=== PATIENT | male | born 1955 | race Caucasian/White ===

== ENCOUNTER 2023-03-12 14:25 | Outpatient (OUT) | payer OTHER, MEDICARE, SELFPAY ==
--- NOTE | 2023-03-12 14:39 | PE_ITS ---
[address] [address] Patient Name: ESE VAIL MRN: [id number] date: 1955 Sex: M Assigned Patient Location: PETCT Current Patient Location: Accession/Order Number: [id number] Exam Date: 03/12/2023 16:11 Report Date: 03/13/2023 09:07 At the request of: MENG ROTH Procedure: PET skull to mid thigh NUCLEAR MEDICINE PET/CT HISTORY: Solitary pulmonary nodule. COMPARISON: None. METHOD: 13.47 mCi of F-18 FDG was administered intravenously. Blood sugar level at the time of the injection: 109. At 52 minutes from injection, PET images were obtained from the skull base through the midthigh levels in the axial plane. Reformatted images were performed in the sagittal and coronal planes. A low-dose, noncontrast CT scan was performed for attenuation correction and anatomical localization. A low dose, noncontrast and nondiagnostic CT scan was performed for attenuation correction and anatomic localization. Mediastinal blood pool SUV max 2.6 using the patient's body weight as the normalization method. FINDINGS: HEAD AND NECK: There are no metabolically active lymph nodes in the neck. There is a left maxillary sinus mucus retention cyst versus polyp. CHEST: There are no metabolically active mediastinal, hilar, or axillary lymph nodes. The major airways are patent. There is no pericardial effusion. There is no evidence of abnormal metabolic uptake in the esophagus. There is no evidence of abnormal metabolic uptake in the lung parenchyma. There is a nonmetabolically active right middle lobe 1.5 x 0.7 cm pulmonary nodule. There are no pleural effusions. There is no pneumothorax. ABDOMEN AND PELVIS: There is no evidence of abnormal metabolic activity in the liver or adrenal glands. There is no evidence of abnormal metabolic active lymph nodes in the abdomen or pelvis. There is no free fluid. There is physiologic uptake in the urinary system and bowel. The liver is fatty. There is a left renal 8 mm stone. There is a left renal 1.6 cm stone. The prostate is enlarged. MUSCULOSKELETAL: There is no evidence of abnormal metabolically active bony lesions. PET/PET skull to mid thigh IMPRESSION: Nonmetabolically active right middle lobe pulmonary nodule. Recommend a single follow-up non-contrast CT chest in 6 months to confirm stability. Left renal stones. Fatty liver. Prostamegaly. Electronically authenticated by: AUDREY MORAN Date: 03/13/2023 09:07
== END 2023-03-12 14:26 | disposition home or self-care (01) ==
LOC: PETCT 14:31
PROVIDERS: PCP Family Medicine; Visit Provider Family Medicine
DX: R91.1 Solitary pulmonary nodule (principal); R59.9 Enlarged lymph nodes, unspecified; N20.0 Calculus of kidney; K76.0 Fatty (change of) liver, not elsewhere classified
CPT/HCPCS: 78815; A9552